=== PATIENT | female | born 1950 | race Caucasian/White ===

== ENCOUNTER 2016-09-28 11:45 | Inpatient (IN) | payer MEDICARE, OTHER ==
[~2016-09-28] VITALS: Ht 154.9 cm; Wt 71.5 kg
[~2016-09-28 11:45] MED LIST: ACAR50TA11 PO; AMIT25TA9 PO; ASPI81 PO; CHL25 PO; DSS100 PO; GABA-531 PO; INSLAN SQ; INSNOV SQ; OMEP20 PO; SITA50 PO; TEAROS OU
[2016-09-28] MEDS ORDERED: ROPI0.255 PO (12:08)
[2016-09-28] MEDS ORDERED: IOVERSOL 350 MG/ML 150 ML VIAL ONE (12:08)
[2016-09-28] MEDS ORDERED: SODIUM CHLORIDE 0.9% 100 ML ONE (12:08)
[2016-09-28] MEDS ORDERED: GLIP10 PO (12:13)
[2016-09-28] MEDS ORDERED: LISI-660 PO (12:13)
[2016-09-28] MEDS ORDERED: ATEN25 PO (12:13)
[2016-09-28] MEDS ORDERED: VITAD1000 PO (12:13)
[2016-09-28] MEDS ORDERED: DOCU-275 PO (12:14)
[2016-09-28] MEDS ORDERED: FERR-89 PO (12:16)
[2016-09-28] MEDS ORDERED: OMEP20 PO (12:16)
[2016-09-28] MEDS ORDERED: CHL25 PO (12:16)
[2016-09-28 12:29] LABS: BASOPHILS % (AUTO) 0.2 % (0.0-2.0); EOSINOPHILS % (AUTO) 1.6 % (1.0-6.0); LYMPHOCYTES # (AUTO) 0.5 K/uL (1.0-4.8); LYMPHOCYTES % (AUTO) 8.8 % (22.0-44.0); MEAN CORPUSCULAR HEMOGLOBIN 30.8 pg (26.0-34.0); MEAN CORPUSCULAR HGB CONC 33.3 G/dL (31.0-37.0); MEAN CORPUSCULAR VOLUME 93 fL (80-100); MONOCYTES # (AUTO) 0.5 K/uL (0.1-1.0); MONOCYTES % (AUTO) 8.6 % (2.0-9.0); NEUTROPHILS % (AUTO) 80.8 % (40.0-70.0); RED BLOOD CELL COUNT(AUTO) 3.24 MIL/uL (4.00-5.20); RED CELL DISTRIBUTION WIDTH 15.3 % (11.5-14.5); WHITE BLOOD COUNT (AUTO) 6.2 K/uL (4.5-11.0)
[2016-09-28] MEDS ORDERED: LORazepam 2 MG/ML VIAL IVP ONE (12:30)
[2016-09-28 12:35] LABS: INR 1.1 (0.9-1.1)
[2016-09-28 12:48] LABS: ANION GAP 10 mmol/L (8-16); BILIRUBIN,TOTAL 0.8 mg/dL (0.1-1.0); CALCIUM, TOTAL 8.7 mg/dL (8.8-10.5); CARBON DIOXIDE 22 mmol/L (22-29); CHLORIDE 108 mmol/L (98-107); GLOMERULAR FILTR. RATE CALC 26 mL/min (>60); POTASSIUM 5.4 mmol/L (3.5-5.1); SODIUM SERUM 140 mmol/L (136-145)
[2016-09-28 12:49] LABS: ALANINE AMINOTRANSFERASE 83 U/L (12-78); ALBUMIN 3.1 g/dL (3.4-5.0); ASPARTATE AMINOTRANSFERASE 99 U/L (15-37); CREATINE KINASE, TOTAL 151 U/L (26-192); TOTAL PROTEIN, SERUM 7.3 g/dL (6.4-8.2)
[2016-09-28 12:54] LABS: PLATELET COUNT (AUTO) 93 K/uL (150-450); UREA NITROGEN, BLOOD 40 mg/dL (7-18)
[2016-09-28 13:36] LABS: CREATINE KINASE MB 2.8 ng/mL (0-5)
[2016-09-28] MEDS ORDERED: HYDROCODONE/ACETAMINOPHEN 5-325 MG TABLET PO ONE (14:00)
[2016-09-28 15:23] LABS: APPEARANCE,URINE CLOUDY (CLEAR); GLUCOSE, URINE (UA) NEGATIVE (NEGATIVE); KETONES,URINE NEGATIVE (NEGATIVE); LEUKOCYTE ESTERASE ,URINE MODERATE (NEGATIVE); OCCULT BLOOD,URINE TRACE (NEGATIVE); PH,URINE 5.5 (5.0-8.0); PROTEIN,URINE NEGATIVE (NEGATIVE)
[2016-09-28 15:26] LABS: ADD UA MICROSCOPIC YES
[2016-09-28 15:50] LABS: SQUAMOUS EPITHELIAL CELL,UR Few /LPF (None Seen)
[2016-09-28 15:53] LABS: RBC,URINE 0-2 /HPF (0-2); WBC,URINE 26-50 /HPF (0-5)
[2016-09-28] MEDS ORDERED: CALCIUM GLUCONATE 100 MG/ML 10 ML IVP ONE (16:45)
[2016-09-28] MEDS ORDERED: SODIUM POLYSTYRENE SULFONATE 15 GM/60 ML SUSPENSION BOTTLE PO ONE (16:45)
[2016-09-28] MEDS ORDERED: LEVOFLOXACIN 500 MG/D5% WATER 100 ML IV ONE (17:45)
[2016-09-28] MEDS ORDERED: 0.9% SODIUM CHLORIDE 10 ML SYRINGE IVP PRN (17:45)
[2016-09-28] MEDS ORDERED: ONDANSETRON HCL 4 MG/2 ML VIAL IVP PRN (17:45)
[2016-09-28] MEDS ORDERED: ACETAMINOPHEN 325 MG TABLET PO PRN (17:45)
[2016-09-28] MEDS ORDERED: IBUPROFEN 400 MG TABLET PO ONE (18:00)
[2016-09-28 18:41] LABS: GLUCOSE,POINT OF CARE 115 MG/DL (70-110)
[2016-09-28] MEDS ORDERED: INSULIN DETEMIR 100 UNITS/ML SQ ONE (20:00)
[2016-09-28] MEDS ORDERED: DEXTROSE 50%-WATER 25 GM/50 ML SYRINGE IVP PRN (20:00)
[2016-09-28] MEDS ORDERED: MAGNESIUM HYDROXIDE SUSPENSION 30 ML UDCUP PO PRN (20:00)
[2016-09-28] MEDS: HYPROMELLOSE 0.5% 15 ML OPHTHALMIC SOLUTION OU SCH ×2 (21:00→22:48)
[2016-09-28 22:06] VITALS: BP 132/66
[2016-09-28] MEDS ORDERED: SODIUM CHLORIDE 0.9% 250 ML IV ONE (22:28)
[2016-09-28 22:42] LABS: GLUCOSE,POINT OF CARE 98 MG/DL (70-110)
[2016-09-28] MEDS: PANTOPRAZOLE SODIUM 40 MG/VIAL IVP SCH (22:45)
[2016-09-28] MEDS: OxyCODONE HCL/ACETAMINOPHEN 5-325 MG TABLET PO PRN (22:46)
[2016-09-28] MEDS: ASPIRIN 81 MG CHEWABLE TABLET PO SCH (22:47)
[2016-09-28] MEDS: CHOLECALCIFEROL (VIT D3) 1,000 UNITS TABLET PO SCH (22:47)
[2016-09-28] MEDS: ATENOLOL 25 MG TABLET PO SCH (22:47)
[2016-09-28] MEDS: DOCUSATE SODIUM 100 MG CAPSULE PO SCH (22:48)
[2016-09-28] MEDS: CefTRIAXone 1 GM/DEXTROSE 50 ML IV SCH (22:56)
[2016-09-28] MEDS: AMITRIPTYLINE HCL 25 MG TABLET PO SCH (22:56)
[2016-09-28 23:33] VITALS: BP 112/64
[2016-09-29 04:38] VITALS: BP 106/57
[2016-09-29] MEDS: INSULIN ASPART 100 UNITS/ML SQ SCH ×3 (05:51→17:30)
[2016-09-29 05:53] LABS: GLUCOSE,POINT OF CARE 88 MG/DL (70-110)
[2016-09-29 07:18] LABS: BASOPHILS # (AUTO) 0.02 K/uL (0.00-0.20); BASOPHILS % (AUTO) 0.5 % (0.0-2.0); EOSINOPHILS # (AUTO) 0.07 K/uL (0.00-0.70); EOSINOPHILS % (AUTO) 1.51 % (1.0-6.0); HEMATOCRIT 28.6 % (36-46); HEMOGLOBIN 9.7 g/dL (12.0-16.0); LYMPHOCYTES # (AUTO) 0.9 K/uL (1.0-4.8); LYMPHOCYTES % (AUTO) 18.5 % (22.0-44.0); MEAN CORPUSCULAR HEMOGLOBIN 31.5 pg (26.0-34.0); MEAN CORPUSCULAR HGB CONC 33.7 G/dL (31.0-37.0); MEAN CORPUSCULAR VOLUME 93 fL (80-100); MONOCYTES # (AUTO) 0.5 K/uL (0.1-1.0); MONOCYTES % (AUTO) 11.5 % (2.0-9.0); NEUTROPHILS # (AUTO) 3.1 K/uL (1.8-7.7); RED BLOOD CELL COUNT(AUTO) 3.07 MIL/uL (4.00-5.20); RED CELL DISTRIBUTION WIDTH 16.8 % (11.5-14.5); WHITE BLOOD COUNT (AUTO) 4.6 K/uL (4.5-11.0)
[2016-09-29 07:30] VITALS: BP 135/65
[2016-09-29 07:38] LABS: PLATELET COUNT (AUTO) 89 K/uL (150-450)
[2016-09-29 08:02] LABS: ALBUMIN 2.8 g/dL (3.4-5.0); BILIRUBIN,TOTAL 0.6 mg/dL (0.1-1.0); CALCIUM, TOTAL 8.2 mg/dL (8.8-10.5); CREATININE 2.08 mg/dL (0.60-1.30); TOTAL PROTEIN, SERUM 6.8 g/dL (6.4-8.2)
[2016-09-29] MEDS: CHOLECALCIFEROL (VIT D3) 1,000 UNITS TABLET PO SCH (08:07)
[2016-09-29] MEDS: OxyCODONE HCL/ACETAMINOPHEN 5-325 MG TABLET PO PRN ×2 (08:07→15:12)
[2016-09-29] MEDS: DOCUSATE SODIUM 100 MG CAPSULE PO SCH ×2 (08:07→21:26)
[2016-09-29] MEDS: PANTOPRAZOLE SODIUM 40 MG/VIAL IVP SCH (08:07)
[2016-09-29] MEDS: ATENOLOL 25 MG TABLET PO SCH (08:07)
[2016-09-29] MEDS: ASPIRIN 81 MG CHEWABLE TABLET PO SCH (08:07)
[2016-09-29] MEDS: FERROUS SULFATE 325 MG EC TABLET PO SCH ×3 (08:08→18:18)
[2016-09-29] MEDS: HYPROMELLOSE 0.5% 15 ML OPHTHALMIC SOLUTION OU SCH ×4 (08:13→21:26)
[2016-09-29 11:27] VITALS: BP 90/46
[2016-09-29] MEDS: INSULIN ASPART 100 UNITS/ML SQ PRN ×2 (12:23→21:30)
[2016-09-29 15:32] VITALS: BP 118/49
[2016-09-29] MEDS: ACETAMINOPHEN 325 MG TABLET PO PRN ×2 (15:56→21:31)
[2016-09-29 19:22] VITALS: BP 101/47
[2016-09-29] MEDS: CefTRIAXone 1 GM/DEXTROSE 50 ML IV SCH (19:33)
[2016-09-29] MEDS: AMITRIPTYLINE HCL 25 MG TABLET PO SCH (21:26)
[2016-09-29 23:19] VITALS: BP 110/48
[2016-09-30 04:49] VITALS: BP 117/47
[2016-09-30] MEDS: OxyCODONE HCL/ACETAMINOPHEN 5-325 MG TABLET PO PRN ×4 (04:53→20:01)
[2016-09-30 07:13] LABS: BASOPHILS % (AUTO) 0.5 % (0.0-2.0); EOSINOPHILS % (AUTO) 3.7 % (1.0-6.0); HEMATOCRIT 24.7 % (36-46); HEMOGLOBIN 8.2 g/dL (12.0-16.0); LYMPHOCYTES % (AUTO) 30.9 % (22.0-44.0); MEAN CORPUSCULAR VOLUME 94 fL (80-100); MONOCYTES # (AUTO) 0.3 K/uL (0.1-1.0); MONOCYTES % (AUTO) 10.6 % (2.0-9.0); NEUTROPHILS # (AUTO) 1.8 K/uL (1.8-7.7); NEUTROPHILS % (AUTO) 54.3 % (40.0-70.0); PLATELET COUNT (AUTO) 62 K/uL (150-450); RED BLOOD CELL COUNT(AUTO) 2.63 MIL/uL (4.00-5.20); RED CELL DISTRIBUTION WIDTH 16.4 % (11.5-14.5); WHITE BLOOD COUNT (AUTO) 3.3 K/uL (4.5-11.0)
[2016-09-30 07:21] LABS: GLUCOSE,POINT OF CARE 110 MG/DL (70-110)
[2016-09-30 07:27] LABS: GLUCOSE,POINT OF CARE 130 MG/DL (70-110)
[2016-09-30 07:27] LABS: GLUCOSE,POINT OF CARE 162 MG/DL (70-110)
[2016-09-30 07:33] VITALS: BP 100/48
[2016-09-30 07:36] LABS: CALCIUM, TOTAL 7.7 mg/dL (8.8-10.5); CREATININE 2.42 mg/dL (0.60-1.30); MAGNESIUM 1.9 mg/dL (1.80-2.40); PHOSPHORUS 4.4 mg/dL (2.5-4.9); POTASSIUM 4.1 mmol/L (3.5-5.1)
[2016-09-30] MEDS: FERROUS SULFATE 325 MG EC TABLET PO SCH ×3 (09:03→18:44)
[2016-09-30] MEDS: DOCUSATE SODIUM 100 MG CAPSULE PO SCH ×2 (09:04→20:00)
[2016-09-30] MEDS: CHOLECALCIFEROL (VIT D3) 1,000 UNITS TABLET PO SCH (09:04)
[2016-09-30] MEDS: ASPIRIN 81 MG CHEWABLE TABLET PO SCH (09:04)
[2016-09-30] MEDS: PANTOPRAZOLE SODIUM 40 MG/VIAL IVP SCH (09:13)
[2016-09-30] MEDS: INSULIN ASPART 100 UNITS/ML SQ SCH ×3 (09:19→18:41)
[2016-09-30] MEDS: HYPROMELLOSE 0.5% 15 ML OPHTHALMIC SOLUTION OU SCH ×4 (09:21→20:00)
[2016-09-30] MEDS: SODIUM CHLORIDE 0.45% 1,000 ML IV SCH (09:25)
[2016-09-30 10:16] LABS: HEMOGLOBIN A1C 7.1 % (4.5-6.2)
[2016-09-30 10:57] VITALS: BP 102/46
[2016-09-30 11:59] LABS: GLUCOSE COMMENT 1 Received Meds; GLUCOSE,POINT OF CARE 157 MG/DL (70-110)
[2016-09-30] MEDS: ATENOLOL 25 MG TABLET PO SCH (12:11)
[2016-09-30] MEDS: INSULIN ASPART 100 UNITS/ML SQ PRN (12:17)
[2016-09-30] MEDS: ALBUMIN HUMAN 25%-25GM/100ML 100 ML IV SCH ×3 (12:21→22:04)
[2016-09-30] MEDS: SOD FERRIC GLUC COMPLX/SUCROSE 125 MG in SODIUM CHLORIDE 0.9% 100 ML IV SCH (13:32)
[2016-09-30 15:12] VITALS: BP 103/51
[2016-09-30 17:27] LABS: GLUCOSE COMMENT 1 Received Meds; GLUCOSE,POINT OF CARE 147 MG/DL (70-110)
[2016-09-30 17:36] LABS: GLUCOSE,POINT OF CARE 89 MG/DL (70-110)
[2016-09-30 19:13] VITALS: BP 100/47
[2016-09-30] MEDS: CefTRIAXone 1 GM/DEXTROSE 50 ML IV SCH (19:58)
[2016-09-30] MEDS: AMITRIPTYLINE HCL 25 MG TABLET PO SCH (20:00)
[2016-10-01 01:05] VITALS: BP 109/52
[2016-10-01] MEDS: SODIUM CHLORIDE 0.45% 1,000 ML IV SCH ×2 (01:42→13:21)
[2016-10-01] MEDS: OxyCODONE HCL/ACETAMINOPHEN 5-325 MG TABLET PO PRN ×3 (01:47→15:02)
[2016-10-01] MEDS: ALBUMIN HUMAN 25%-25GM/100ML 100 ML IV SCH ×4 (03:34→21:58)
[2016-10-01 05:20] VITALS: BP 102/94
[2016-10-01 07:13] VITALS: BP 138/47
[2016-10-01 07:49] LABS: BASOPHILS % (AUTO) 0.3 % (0.0-2.0); EOSINOPHILS % (AUTO) 4.2 % (1.0-6.0); HEMATOCRIT 23.1 % (36-46); HEMOGLOBIN 7.6 g/dL (12.0-16.0); LYMPHOCYTES # (AUTO) 0.9 K/uL (1.0-4.8); LYMPHOCYTES % (AUTO) 41.7 % (22.0-44.0); MEAN CORPUSCULAR HEMOGLOBIN 30.9 pg (26.0-34.0); MEAN CORPUSCULAR HGB CONC 32.9 G/dL (31.0-37.0); MEAN CORPUSCULAR VOLUME 94 fL (80-100); MONOCYTES # (AUTO) 0.3 K/uL (0.1-1.0); MONOCYTES % (AUTO) 11.7 % (2.0-9.0); NEUTROPHILS # (AUTO) 0.9 K/uL (1.8-7.7); NEUTROPHILS % (AUTO) 42.1 % (40.0-70.0); PLATELET COUNT (AUTO) 63 K/uL (150-450); RED BLOOD CELL COUNT(AUTO) 2.46 MIL/uL (4.00-5.20); RED CELL DISTRIBUTION WIDTH 15.6 % (11.5-14.5); WHITE BLOOD COUNT (AUTO) 2.2 K/uL (4.5-11.0)
[2016-10-01 08:03] LABS: CALCIUM, TOTAL 7.6 mg/dL (8.8-10.5); CREATININE 2.09 mg/dL (0.60-1.30); PHOSPHORUS 3.5 mg/dL (2.5-4.9); POTASSIUM 4.3 mmol/L (3.5-5.1)
[2016-10-01] MEDS: PANTOPRAZOLE SODIUM 40 MG/VIAL IVP SCH (08:33)
[2016-10-01] MEDS: FERROUS SULFATE 325 MG EC TABLET PO SCH ×3 (08:33→18:22)
[2016-10-01] MEDS: ATENOLOL 25 MG TABLET PO SCH (08:34)
[2016-10-01] MEDS: DOCUSATE SODIUM 100 MG CAPSULE PO SCH ×2 (08:34→21:00)
[2016-10-01] MEDS: HYPROMELLOSE 0.5% 15 ML OPHTHALMIC SOLUTION OU SCH ×4 (08:34→20:33)
[2016-10-01] MEDS: CHOLECALCIFEROL (VIT D3) 1,000 UNITS TABLET PO SCH (08:34)
[2016-10-01] MEDS: ASPIRIN 81 MG CHEWABLE TABLET PO SCH (08:34)
[2016-10-01] MEDS: INSULIN ASPART 100 UNITS/ML SQ SCH ×3 (08:42→18:25)
[2016-10-01] MEDS: MORPHINE SULFATE 2 MG/ML SYRINGE IVP PRN ×2 (09:14→20:38)
[2016-10-01] MEDS: SOD FERRIC GLUC COMPLX/SUCROSE 125 MG in SODIUM CHLORIDE 0.9% 100 ML IV SCH (10:27)
[2016-10-01 11:48] LABS: GLUCOSE,POINT OF CARE 76 MG/DL (70-110)
[2016-10-01 11:55] VITALS: BP 108/41
[2016-10-01 15:44] VITALS: BP 101/40
[2016-10-01] MEDS: GuaiFENesin/D-METHORPHAN [SUGAR-FREE] 200-20MG/10 ML SYRUP UDCUP PO PRN (18:23)
[2016-10-01 20:01] VITALS: BP 104/59
[2016-10-01] MEDS: CefTRIAXone 1 GM/DEXTROSE 50 ML IV SCH (20:33)
[2016-10-01] MEDS: AMITRIPTYLINE HCL 25 MG TABLET PO SCH (20:37)
[2016-10-01] MEDS: INSULIN ASPART 100 UNITS/ML SQ PRN (20:45)
[2016-10-02] VITALS (8 sets, daily range): BP systolic 92–142; BP diastolic 53–74
[2016-10-02] MEDS: OxyCODONE HCL/ACETAMINOPHEN 5-325 MG TABLET PO PRN (01:23)
[2016-10-02] MEDS: GuaiFENesin/D-METHORPHAN [SUGAR-FREE] 200-20MG/10 ML SYRUP UDCUP PO PRN (03:29)
[2016-10-02] MEDS: ALBUMIN HUMAN 25%-25GM/100ML 100 ML IV SCH (03:29)
[2016-10-02] MEDS: ONDANSETRON HCL 4 MG/2 ML VIAL IVP PRN ×3 (03:29→17:31)
[2016-10-02] MEDS: SODIUM CHLORIDE 0.45% 1,000 ML IV SCH ×2 (03:30→09:29)
[2016-10-02] MEDS: INSULIN ASPART 100 UNITS/ML SQ SCH ×3 (06:10→17:39)
[2016-10-02] MEDS: ASPIRIN 81 MG CHEWABLE TABLET PO SCH (09:28)
[2016-10-02] MEDS: ATENOLOL 25 MG TABLET PO SCH (09:28)
[2016-10-02] MEDS: CHOLECALCIFEROL (VIT D3) 1,000 UNITS TABLET PO SCH (09:29)
[2016-10-02] MEDS: FERROUS SULFATE 325 MG EC TABLET PO SCH ×3 (09:29→17:36)
[2016-10-02] MEDS: PANTOPRAZOLE SODIUM 40 MG/VIAL IVP SCH (09:29)
[2016-10-02] MEDS: DOCUSATE SODIUM 100 MG CAPSULE PO SCH ×2 (09:29→21:17)
[2016-10-02] MEDS: HYPROMELLOSE 0.5% 15 ML OPHTHALMIC SOLUTION OU SCH ×4 (09:30→21:17)
[2016-10-02] MEDS: SOD FERRIC GLUC COMPLX/SUCROSE 125 MG in SODIUM CHLORIDE 0.9% 100 ML IV SCH (10:00)
[2016-10-02] MEDS ORDERED: ALBUTEROL SULFATE 2.5 MG/0.5 ML NEB SOLUTION NEB PRN (10:00)
[2016-10-02 10:38] LABS: CREATININE 1.9 mg/dL (0.60-1.30); MAGNESIUM 2.3 mg/dL (1.80-2.40); PHOSPHORUS 3.1 mg/dL (2.5-4.9); POTASSIUM 4.7 mmol/L (3.5-5.1)
[2016-10-02] MEDS ORDERED: 0.9% SODIUM CHLORIDE 5 ML NEB SOLUTION NEB ONE (15:58)
[2016-10-02] MEDS: MORPHINE SULFATE 2 MG/ML SYRINGE IVP PRN ×2 (17:31→23:33)
[2016-10-02] MEDS: CefTRIAXone 1 GM/DEXTROSE 50 ML IV SCH (21:16)
[2016-10-02] MEDS: AMITRIPTYLINE HCL 25 MG TABLET PO SCH (21:31)
[2016-10-02] MEDS: 0.9% SODIUM CHLORIDE 10 ML SYRINGE IVP PRN ×2 (21:31→23:33)
[2016-10-02] MEDS: INSULIN ASPART 100 UNITS/ML SQ PRN (21:43)
[2016-10-03 04:11] VITALS: BP 125/55
[2016-10-03] MEDS: INSULIN ASPART 100 UNITS/ML SQ SCH ×4 (06:19→17:47)
[2016-10-03] MEDS: GuaiFENesin/D-METHORPHAN [SUGAR-FREE] 200-20MG/10 ML SYRUP UDCUP PO PRN (06:28)
[2016-10-03 06:53] LABS: BASOPHILS % (AUTO) 0.2 % (0.0-2.0); EOSINOPHILS % (AUTO) 0.1 % (1.0-6.0); HEMATOCRIT 23.8 % (36-46); HEMOGLOBIN 7.8 g/dL (12.0-16.0); LYMPHOCYTES # (AUTO) 0.8 K/uL (1.0-4.8); LYMPHOCYTES % (AUTO) 11.9 % (22.0-44.0); MEAN CORPUSCULAR HEMOGLOBIN 30.9 pg (26.0-34.0); MEAN CORPUSCULAR VOLUME 94 fL (80-100); MONOCYTES # (AUTO) 0.6 K/uL (0.1-1.0); MONOCYTES % (AUTO) 8.6 % (2.0-9.0); NEUTROPHILS # (AUTO) 5.6 K/uL (1.8-7.7); NEUTROPHILS % (AUTO) 79.2 % (40.0-70.0); PLATELET COUNT (AUTO) 82 K/uL (150-450); RED BLOOD CELL COUNT(AUTO) 2.53 MIL/uL (4.00-5.20); RED CELL DISTRIBUTION WIDTH 15.8 % (11.5-14.5); WHITE BLOOD COUNT (AUTO) 7.1 K/uL (4.5-11.0)
[2016-10-03 07:15] LABS: CALCIUM, TOTAL 8.4 mg/dL (8.8-10.5); CREATININE 1.93 mg/dL (0.60-1.30); POTASSIUM 4.4 mmol/L (3.5-5.1)
[2016-10-03] MEDS: FERROUS SULFATE 325 MG EC TABLET PO SCH ×3 (08:42→18:18)
[2016-10-03] MEDS: PANTOPRAZOLE SODIUM 40 MG/VIAL IVP SCH (08:42)
[2016-10-03] MEDS: CHOLECALCIFEROL (VIT D3) 1,000 UNITS TABLET PO SCH (08:43)
[2016-10-03] MEDS: ATENOLOL 25 MG TABLET PO SCH (08:43)
[2016-10-03] MEDS: ASPIRIN 81 MG CHEWABLE TABLET PO SCH (08:43)
[2016-10-03] MEDS: DOCUSATE SODIUM 100 MG CAPSULE PO SCH ×2 (08:43→21:17)
[2016-10-03] MEDS: HYPROMELLOSE 0.5% 15 ML OPHTHALMIC SOLUTION OU SCH ×4 (08:43→21:17)
[2016-10-03] MEDS ORDERED: FUROSEMIDE 40 MG/4 ML VIAL ONE (10:56)
[2016-10-03] MEDS ORDERED: FUROSEMIDE 40 MG/4 ML VIAL IVP ONE (11:00)
[2016-10-03] MEDS: SOD FERRIC GLUC COMPLX/SUCROSE 125 MG in SODIUM CHLORIDE 0.9% 100 ML IV SCH (11:26)
[2016-10-03 11:30] VITALS: BP 124/72
[2016-10-03] MEDS: INSULIN ASPART 100 UNITS/ML SQ PRN ×3 (11:49→21:40)
[2016-10-03 15:25] VITALS: BP 143/54
[2016-10-03 19:49] VITALS: BP 140/58
[2016-10-03] MEDS: ALBUTEROL SULFATE 2.5 MG/0.5 ML NEB SOLUTION NEB SCH (20:00)
[2016-10-03] MEDS: AMITRIPTYLINE HCL 25 MG TABLET PO SCH (21:00)
[2016-10-03] MEDS: CefTRIAXone 1 GM/DEXTROSE 50 ML IV SCH (21:16)
[2016-10-03] MEDS: 0.9% SODIUM CHLORIDE 10 ML SYRINGE IVP PRN (21:27)
[2016-10-04] MEDS ORDERED: 0.9% SODIUM CHLORIDE 5 ML NEB SOLUTION NEB ONE ×4 (02:40→20:07)
[2016-10-04] MEDS: ALBUTEROL SULFATE 2.5 MG/0.5 ML NEB SOLUTION NEB SCH ×4 (02:43→20:07)
[2016-10-04 05:27] VITALS: BP 151/70
[2016-10-04] MEDS: INSULIN ASPART 100 UNITS/ML SQ PRN ×4 (06:31→22:37)
[2016-10-04] MEDS: INSULIN ASPART 100 UNITS/ML SQ SCH ×2 (06:34→18:25)
[2016-10-04 07:11] LABS: BASOPHILS % (AUTO) 0.1 % (0.0-2.0); EOSINOPHILS % (AUTO) 0.06 % (1.0-6.0); HEMATOCRIT 22.6 % (36-46); HEMOGLOBIN 7.7 g/dL (12.0-16.0); LYMPHOCYTES # (AUTO) 0.9 K/uL (1.0-4.8); LYMPHOCYTES % (AUTO) 11.7 % (22.0-44.0); MEAN CORPUSCULAR HEMOGLOBIN 31.7 pg (26.0-34.0); MEAN CORPUSCULAR HGB CONC 33.9 G/dL (31.0-37.0); MEAN CORPUSCULAR VOLUME 93 fL (80-100); MONOCYTES # (AUTO) 0.6 K/uL (0.1-1.0); MONOCYTES % (AUTO) 7.3 % (2.0-9.0); NEUTROPHILS # (AUTO) 6.4 K/uL (1.8-7.7); NEUTROPHILS % (AUTO) 80.9 % (40.0-70.0); PLATELET COUNT (AUTO) 75 K/uL (150-450); RED BLOOD CELL COUNT(AUTO) 2.42 MIL/uL (4.00-5.20); RED CELL DISTRIBUTION WIDTH 16.3 % (11.5-14.5); WHITE BLOOD COUNT (AUTO) 7.9 K/uL (4.5-11.0)
[2016-10-04 07:52] LABS: CALCIUM, TOTAL 8.8 mg/dL (8.8-10.5); CREATININE 1.72 mg/dL (0.60-1.30); POTASSIUM 3.6 mmol/L (3.5-5.1); THYROID STIMULATING HORMONE 0.18 uIU/mL (0.36-3.74)
[2016-10-04 07:56] VITALS: BP 135/58
[2016-10-04] MEDS: FERROUS SULFATE 325 MG EC TABLET PO SCH ×3 (08:22→18:24)
[2016-10-04] MEDS: PANTOPRAZOLE SODIUM 40 MG/VIAL IVP SCH (08:22)
[2016-10-04] MEDS: DOCUSATE SODIUM 100 MG CAPSULE PO SCH ×2 (08:23→20:41)
[2016-10-04] MEDS: CHOLECALCIFEROL (VIT D3) 1,000 UNITS TABLET PO SCH (08:23)
[2016-10-04] MEDS: ATENOLOL 25 MG TABLET PO SCH (08:23)
[2016-10-04] MEDS: HYPROMELLOSE 0.5% 15 ML OPHTHALMIC SOLUTION OU SCH ×4 (08:23→20:41)
[2016-10-04] MEDS: ASPIRIN 81 MG CHEWABLE TABLET PO SCH (08:23)
[2016-10-04] MEDS: SOD FERRIC GLUC COMPLX/SUCROSE 125 MG in SODIUM CHLORIDE 0.9% 100 ML IV SCH (10:00)
[2016-10-04] MEDS ORDERED: POTASSIUM CHLORIDE 10% 40 MEQ/30 ML LIQUID UDCUP ONE (10:11)
[2016-10-04] MEDS ORDERED: FUROSEMIDE 40 MG/4 ML VIAL ONE (10:12)
[2016-10-04] MEDS ORDERED: FUROSEMIDE 40 MG/4 ML VIAL IVP ONE (10:15)
[2016-10-04] MEDS ORDERED: POTASSIUM CHLORIDE 10% 40 MEQ/30 ML LIQUID UDCUP PO ONE (10:15)
[2016-10-04 11:09] VITALS: BP 109/68
[2016-10-04] MEDS ORDERED: FUROSEMIDE 20 MG/2 ML VIAL IVP ONE (15:45)
[2016-10-04 19:12] VITALS: BP 158/69
[2016-10-04] MEDS: CefTRIAXone 1 GM/DEXTROSE 50 ML IV SCH (20:39)
[2016-10-04] MEDS: AMITRIPTYLINE HCL 25 MG TABLET PO SCH (20:41)
[2016-10-04 23:54] VITALS: BP 153/68
[2016-10-05] VITALS (8 sets, daily range): BP systolic 129–150; BP diastolic 51–69
[2016-10-05] MEDS ORDERED: 0.9% SODIUM CHLORIDE 5 ML NEB SOLUTION NEB ONE ×4 (02:01→20:08)
[2016-10-05] MEDS: ALBUTEROL SULFATE 2.5 MG/0.5 ML NEB SOLUTION NEB SCH ×4 (02:06→20:23)
[2016-10-05 05:21] LABS: GLUCOSE COMMENT 1 Received Meds; GLUCOSE,POINT OF CARE 130 MG/DL (70-110)
[2016-10-05 05:27] LABS: GLUCOSE COMMENT 1 Received Meds; GLUCOSE,POINT OF CARE 248 MG/DL (70-110)
[2016-10-05 05:27] LABS: GLUCOSE COMMENT 1 Received Meds; GLUCOSE,POINT OF CARE 295 MG/DL (70-110)
[2016-10-05] MEDS ORDERED: SODIUM CHLORIDE 0.9% 250 ML IV ONE (05:51)
[2016-10-05] MEDS: INSULIN ASPART 100 UNITS/ML SQ PRN ×3 (06:08→20:43)
[2016-10-05 07:25] LABS: BASOPHILS % (AUTO) 0.2 % (0.0-2.0); EOSINOPHILS % (AUTO) 0 % (1.0-6.0); HEMATOCRIT 23.4 % (36-46); HEMOGLOBIN 7.7 g/dL (12.0-16.0); LYMPHOCYTES # (AUTO) 0.9 K/uL (1.0-4.8); LYMPHOCYTES % (AUTO) 13.8 % (22.0-44.0); MEAN CORPUSCULAR HEMOGLOBIN 30.9 pg (26.0-34.0); MEAN CORPUSCULAR HGB CONC 32.7 G/dL (31.0-37.0); MEAN CORPUSCULAR VOLUME 95 fL (80-100); MONOCYTES # (AUTO) 0.5 K/uL (0.1-1.0); MONOCYTES % (AUTO) 7.2 % (2.0-9.0); NEUTROPHILS # (AUTO) 5.1 K/uL (1.8-7.7); NEUTROPHILS % (AUTO) 78.8 % (40.0-70.0); PLATELET COUNT (AUTO) 81 K/uL (150-450); RED BLOOD CELL COUNT(AUTO) 2.48 MIL/uL (4.00-5.20); WHITE BLOOD COUNT (AUTO) 6.4 K/uL (4.5-11.0)
[2016-10-05 07:47] LABS: CALCIUM, TOTAL 8.9 mg/dL (8.8-10.5); CREATININE 1.65 mg/dL (0.60-1.30); POTASSIUM 3.2 mmol/L (3.5-5.1)
[2016-10-05 08:34] LABS: RBC MORPHOLOGY COMMENT NORMAL RBC MORPH
[2016-10-05] MEDS ORDERED: POTASSIUM CHLORIDE 20 MEQ ER TABLET PO ONE ×2 (09:00→12:45)
[2016-10-05] MEDS: INSULIN ASPART 100 UNITS/ML SQ SCH ×3 (09:33→18:39)
[2016-10-05] MEDS: SOD FERRIC GLUC COMPLX/SUCROSE 125 MG in SODIUM CHLORIDE 0.9% 100 ML IV SCH (09:35)
[2016-10-05] MEDS: ASPIRIN 81 MG CHEWABLE TABLET PO SCH (09:36)
[2016-10-05] MEDS: CHOLECALCIFEROL (VIT D3) 1,000 UNITS TABLET PO SCH (09:36)
[2016-10-05] MEDS: FERROUS SULFATE 325 MG EC TABLET PO SCH ×3 (09:36→18:39)
[2016-10-05] MEDS: DOCUSATE SODIUM 100 MG CAPSULE PO SCH ×2 (09:36→20:41)
[2016-10-05] MEDS: PANTOPRAZOLE SODIUM 40 MG/VIAL IVP SCH (09:36)
[2016-10-05] MEDS: HYPROMELLOSE 0.5% 15 ML OPHTHALMIC SOLUTION OU SCH ×4 (09:36→20:41)
[2016-10-05] MEDS: ATENOLOL 25 MG TABLET PO SCH (09:36)
[2016-10-05] MEDS: FUROSEMIDE 40 MG/4 ML VIAL IVP SCH ×2 (14:25→20:41)
[2016-10-05 15:23] LABS: GLUCOSE,POINT OF CARE 110 MG/DL (70-110)
[2016-10-05 15:26] LABS: GLUCOSE,POINT OF CARE 116 MG/DL (70-110)
[2016-10-05 15:27] LABS: GLUCOSE,POINT OF CARE 260 MG/DL (70-110)
[2016-10-05 15:27] LABS: GLUCOSE COMMENT 1 Received Meds; GLUCOSE,POINT OF CARE 141 MG/DL (70-110)
[2016-10-05 15:32] LABS: GLUCOSE COMMENT 1 Received Meds; GLUCOSE,POINT OF CARE 247 MG/DL (70-110)
[2016-10-05 15:32] LABS: GLUCOSE COMMENT 1 Received Meds; GLUCOSE,POINT OF CARE 241 MG/DL (70-110)
[2016-10-05] MEDS: CefTRIAXone 1 GM/DEXTROSE 50 ML IV SCH (19:56)
[2016-10-05] MEDS: AMITRIPTYLINE HCL 25 MG TABLET PO SCH (20:41)
[2016-10-05] MEDS: OxyCODONE HCL/ACETAMINOPHEN 5-325 MG TABLET PO PRN (21:38)
[2016-10-06] MEDS ORDERED: 0.9% SODIUM CHLORIDE 5 ML NEB SOLUTION NEB ONE ×4 (02:25→19:07)
[2016-10-06] MEDS: ALBUTEROL SULFATE 2.5 MG/0.5 ML NEB SOLUTION NEB SCH ×4 (02:30→19:14)
[2016-10-06 04:02] LABS: GLUCOSE,POINT OF CARE 111 MG/DL (70-110)
[2016-10-06 04:11] LABS: GLUCOSE COMMENT 1 Received Meds; GLUCOSE,POINT OF CARE 175 MG/DL (70-110)
[2016-10-06 04:13] VITALS: BP 113/54
[2016-10-06] MEDS: INSULIN ASPART 100 UNITS/ML SQ PRN ×2 (06:12→21:42)
[2016-10-06 07:06] LABS: ALBUMIN 3.5 g/dL (3.4-5.0); CALCIUM, TOTAL 8.6 mg/dL (8.8-10.5); CREATININE 1.67 mg/dL (0.60-1.30); MAGNESIUM 1.8 mg/dL (1.80-2.40); PHOSPHORUS 2.7 mg/dL (2.5-4.9); POTASSIUM 3.3 mmol/L (3.5-5.1); TOTAL PROTEIN, SERUM 6.9 g/dL (6.4-8.2)
[2016-10-06 07:21] LABS: ALBUMIN URINE (ELP24) 41.8 %; ALPHA-1 URINE (ELP24) 0.6 %; ALPHA-2 URINE(ELP24) 4.9 %; BETA URINE(ELP24) 22.7 %; GAMMA URINE(ELP24) 30.1 %; TOTAL PROTEIN URINE 18.4 mg/dL (Not Estab.)
[2016-10-06] MEDS ORDERED: POTASSIUM CHLORIDE 20 MEQ ER TABLET PO ONE (07:45)
[2016-10-06 07:52] VITALS: BP 140/58
[2016-10-06] MEDS: INSULIN ASPART 100 UNITS/ML SQ SCH ×3 (08:39→17:55)
[2016-10-06] MEDS: ATENOLOL 25 MG TABLET PO SCH (08:40)
[2016-10-06] MEDS: CHOLECALCIFEROL (VIT D3) 1,000 UNITS TABLET PO SCH (08:42)
[2016-10-06] MEDS: DOCUSATE SODIUM 100 MG CAPSULE PO SCH ×2 (08:42→20:14)
[2016-10-06] MEDS: PANTOPRAZOLE SODIUM 40 MG/VIAL IVP SCH (08:42)
[2016-10-06] MEDS: ASPIRIN 81 MG CHEWABLE TABLET PO SCH (08:42)
[2016-10-06] MEDS: FERROUS SULFATE 325 MG EC TABLET PO SCH ×3 (08:42→18:26)
[2016-10-06] MEDS: HYPROMELLOSE 0.5% 15 ML OPHTHALMIC SOLUTION OU SCH ×4 (08:42→20:14)
[2016-10-06] MEDS: SOD FERRIC GLUC COMPLX/SUCROSE 125 MG in SODIUM CHLORIDE 0.9% 100 ML IV SCH (10:50)
[2016-10-06 10:54] VITALS: BP 130/54
[2016-10-06 13:56] VITALS: BP 137/52
[2016-10-06 19:34] VITALS: BP 144/59
[2016-10-06] MEDS: CefTRIAXone 1 GM/DEXTROSE 50 ML IV SCH (20:13)
[2016-10-06] MEDS: AMITRIPTYLINE HCL 25 MG TABLET PO SCH (20:14)
[2016-10-06] MEDS: OxyCODONE HCL/ACETAMINOPHEN 5-325 MG TABLET PO PRN (20:14)
[2016-10-06] MEDS: FUROSEMIDE 40 MG/4 ML VIAL IVP SCH (20:14)
[2016-10-06 23:26] VITALS: BP 108/40
[2016-10-07] VITALS (9 sets, daily range): BP systolic 124–153; BP diastolic 50–67
[2016-10-07] MEDS ORDERED: 0.9% SODIUM CHLORIDE 5 ML NEB SOLUTION NEB ONE ×4 (02:17→19:35)
[2016-10-07] MEDS: ALBUTEROL SULFATE 2.5 MG/0.5 ML NEB SOLUTION NEB SCH ×5 (02:18→19:49)
[2016-10-07 05:58] LABS: BASOPHILS # (AUTO) 0.03 K/uL (0.00-0.20); BASOPHILS % (AUTO) 0.4 % (0.0-2.0); EOSINOPHILS # (AUTO) 0.18 K/uL (0.00-0.70); EOSINOPHILS % (AUTO) 2.71 % (1.0-6.0); HEMATOCRIT 28.6 % (36-46); HEMOGLOBIN 9.9 g/dL (12.0-16.0); LYMPHOCYTES # (AUTO) 1.8 K/uL (1.0-4.8); LYMPHOCYTES % (AUTO) 27.6 % (22.0-44.0); MEAN CORPUSCULAR HEMOGLOBIN 31.8 pg (26.0-34.0); MEAN CORPUSCULAR HGB CONC 34.5 G/dL (31.0-37.0); MEAN CORPUSCULAR VOLUME 92 fL (80-100); MONOCYTES # (AUTO) 0.7 K/uL (0.1-1.0); MONOCYTES % (AUTO) 10.1 % (2.0-9.0); NEUTROPHILS # (AUTO) 3.9 K/uL (1.8-7.7); NEUTROPHILS % (AUTO) 59.1 % (40.0-70.0); PLATELET COUNT (AUTO) 92 K/uL (150-450); WHITE BLOOD COUNT (AUTO) 6.6 K/uL (4.5-11.0)
[2016-10-07 06:22] LABS: GLUCOSE,POINT OF CARE 178 MG/DL (70-110)
[2016-10-07 06:43] LABS: ALBUMIN 3.6 g/dL (3.4-5.0); BILIRUBIN,TOTAL 0.9 mg/dL (0.1-1.0); CALCIUM, TOTAL 8.4 mg/dL (8.8-10.5); CREATININE 1.61 mg/dL (0.60-1.30); POTASSIUM 3.5 mmol/L (3.5-5.1); TOTAL PROTEIN, SERUM 6.5 g/dL (6.4-8.2)
[2016-10-07] MEDS: ATENOLOL 25 MG TABLET PO SCH (08:03)
[2016-10-07] MEDS: FUROSEMIDE 40 MG TABLET PO SCH (08:03)
[2016-10-07] MEDS: ASPIRIN 81 MG CHEWABLE TABLET PO SCH (08:03)
[2016-10-07] MEDS: CHOLECALCIFEROL (VIT D3) 1,000 UNITS TABLET PO SCH (08:03)
[2016-10-07] MEDS: DOCUSATE SODIUM 100 MG CAPSULE PO SCH ×2 (08:03→21:01)
[2016-10-07] MEDS: PANTOPRAZOLE SODIUM 40 MG/VIAL IVP SCH (08:04)
[2016-10-07] MEDS: HYPROMELLOSE 0.5% 15 ML OPHTHALMIC SOLUTION OU SCH ×4 (08:04→21:01)
[2016-10-07] MEDS: FERROUS SULFATE 325 MG EC TABLET PO SCH ×3 (08:20→18:21)
[2016-10-07] MEDS ORDERED: POTASSIUM CHLORIDE 10 MEQ ER TABLET PO ONE (09:00)
[2016-10-07] MEDS: INSULIN ASPART 100 UNITS/ML SQ SCH ×3 (09:37→17:20)
[2016-10-07] MEDS: SOD FERRIC GLUC COMPLX/SUCROSE 125 MG in SODIUM CHLORIDE 0.9% 100 ML IV SCH (09:38)
[2016-10-07] MEDS: OxyCODONE HCL/ACETAMINOPHEN 5-325 MG TABLET PO PRN ×2 (09:45→21:23)
[2016-10-07] MEDS ORDERED: SESTAMIBI TC99M/UD ISOTOPE 1 EA INJ INJ ONE ×2 (10:05→14:00)
[2016-10-07] MEDS ORDERED: REGADENOSON 0.4 MG/5 ML PF SYRINGE IVP ONE (12:00)
[2016-10-07 19:22] LABS: GLUCOSE COMMENT 1 Received Meds; GLUCOSE,POINT OF CARE 179 MG/DL (70-110)
[2016-10-07 19:22] LABS: GLUCOSE COMMENT 1 Received Meds; GLUCOSE,POINT OF CARE 237 MG/DL (70-110)
[2016-10-07 19:22] LABS: GLUCOSE COMMENT 1 Received Meds; GLUCOSE,POINT OF CARE 236 MG/DL (70-110)
[2016-10-07] MEDS: CefTRIAXone 1 GM/DEXTROSE 50 ML IV SCH (20:52)
[2016-10-07] MEDS: OXYGEN THERAPY IH SCH (21:01)
[2016-10-07] MEDS: AMITRIPTYLINE HCL 25 MG TABLET PO SCH (21:01)
[2016-10-07] MEDS: INSULIN ASPART 100 UNITS/ML SQ PRN (21:21)
[2016-10-08] MEDS: ALBUTEROL SULFATE 2.5 MG/0.5 ML NEB SOLUTION NEB SCH ×3 (02:00→14:50)
[2016-10-08 03:41] LABS: GLUCOSE,POINT OF CARE 139 MG/DL (70-110)
[2016-10-08 05:13] VITALS: BP 137/56
[2016-10-08] MEDS: INSULIN ASPART 100 UNITS/ML SQ PRN (06:37)
[2016-10-08 06:52] LABS: GLUCOSE COMMENT 1 Received Meds; GLUCOSE,POINT OF CARE 165 MG/DL (70-110)
[2016-10-08 07:07] LABS: CALCIUM, TOTAL 7.8 mg/dL (8.8-10.5); CREATININE 1.69 mg/dL (0.60-1.30); MAGNESIUM 1.9 mg/dL (1.80-2.40); PHOSPHORUS 3.8 mg/dL (2.5-4.9); POTASSIUM 3.8 mmol/L (3.5-5.1)
[2016-10-08] MEDS ORDERED: 0.9% SODIUM CHLORIDE 5 ML NEB SOLUTION NEB ONE ×3 (07:15→19:21)
[2016-10-08 08:00] VITALS: BP 149/63
[2016-10-08] MEDS: FUROSEMIDE 40 MG TABLET PO SCH (09:11)
[2016-10-08] MEDS: FERROUS SULFATE 325 MG EC TABLET PO SCH ×3 (09:11→17:51)
[2016-10-08] MEDS: ATENOLOL 25 MG TABLET PO SCH (09:11)
[2016-10-08] MEDS: CHOLECALCIFEROL (VIT D3) 1,000 UNITS TABLET PO SCH (09:12)
[2016-10-08] MEDS: HYPROMELLOSE 0.5% 15 ML OPHTHALMIC SOLUTION OU SCH ×3 (09:12→17:51)
[2016-10-08] MEDS: DOCUSATE SODIUM 100 MG CAPSULE PO SCH (09:12)
[2016-10-08] MEDS: ASPIRIN 81 MG CHEWABLE TABLET PO SCH (09:12)
[2016-10-08] MEDS: PANTOPRAZOLE SODIUM 40 MG/VIAL IVP SCH (09:12)
[2016-10-08] MEDS: OXYGEN THERAPY IH SCH (09:13)
[2016-10-08] MEDS: INSULIN ASPART 100 UNITS/ML SQ SCH ×3 (09:21→17:52)
[2016-10-08 11:22] VITALS: BP 124/62
[2016-10-08 15:36] VITALS: BP 146/64
[2016-10-08] MEDS ORDERED: FURO40I IM (18:12)
[2016-10-08 20:03] LABS: GLUCOSE COMMENT 1 Received Meds; GLUCOSE,POINT OF CARE 164 MG/DL (70-110)
[2016-10-12 14:06] LABS: GLUCOSE,POINT OF CARE 251 MG/DL (70-110)
[2016-10-12 14:07] LABS: GLUCOSE,POINT OF CARE 172 MG/DL (70-110)
[2016-10-12 14:07] LABS: GLUCOSE COMMENT 1 Received Meds; GLUCOSE,POINT OF CARE 159 MG/DL (70-110)
[2016-10-12 14:07] LABS: GLUCOSE,POINT OF CARE 198 MG/DL (70-110)
[2016-10-12 14:12] LABS: GLUCOSE,POINT OF CARE 259 MG/DL (70-110)
[2016-10-12 14:12] LABS: GLUCOSE COMMENT 1 Received Meds; GLUCOSE,POINT OF CARE 155 MG/DL (70-110)
[2016-10-12 14:12] LABS: GLUCOSE COMMENT 1 Received Meds; GLUCOSE,POINT OF CARE 202 MG/DL (70-110)
[2016-10-12 14:52] LABS: GLUCOSE COMMENT 1 Received Meds; GLUCOSE,POINT OF CARE 209 MG/DL (70-110)
== END 2016-10-08 18:25 | disposition home or self-care (01) | DRG 682 ==
LOC: EMS 11:46 → AHU 20:25 → 5N 20:26
PROVIDERS: ADMIT Internal Medicine; ATTEND Internal Medicine
PROC: 30233N1 Transfusion of Nonautologous Red Blood Cells into Peripheral Vein, Percutaneous Approach (ICD-10-PCS; principal; 2016-10-05)
DX: N17.9 Acute kidney failure, unspecified (principal); G93.41 Metabolic encephalopathy; E43 Unspecified severe protein-calorie malnutrition; I21.4 Non-ST elevation (NSTEMI) myocardial infarction; J96.90 Respiratory failure, unspecified, unspecified whether with hypoxia or hypercapnia; N39.0 Urinary tract infection, site not specified; R65.10 Systemic inflammatory response syndrome (SIRS) of non-infectious origin without acute organ dysfunction; J81.1 Chronic pulmonary edema; I13.0 Hypertensive heart and chronic kidney disease with heart failure and stage 1 through stage 4 chronic kidney disease, or unspecified chronic kidney disease; D61.818 Other pancytopenia; E87.5 Hyperkalemia; I51.7 Cardiomegaly; D64.9 Anemia, unspecified; E11.22 Type 2 diabetes mellitus with diabetic chronic kidney disease; K21.9 Gastro-esophageal reflux disease without esophagitis; I10 Essential (primary) hypertension; E11.21 Type 2 diabetes mellitus with diabetic nephropathy; D50.9 Iron deficiency anemia, unspecified; E78.5 Hyperlipidemia, unspecified; G20 Parkinson's disease; E86.9 Volume depletion, unspecified; E87.6 Hypokalemia; B96.20 Unspecified Escherichia coli [E. coli] as the cause of diseases classified elsewhere; I50.9 Heart failure, unspecified; N18.9 Chronic kidney disease, unspecified; E78.00 Pure hypercholesterolemia, unspecified; M19.90 Unspecified osteoarthritis, unspecified site; E87.70 Fluid overload, unspecified; Z79.4 Long term (current) use of insulin; Z79.82 Long term (current) use of aspirin; Z68.24 Body mass index [BMI] 24.0-24.9, adult
CPT/HCPCS: 51702; 70496; 76770; 78452; 81050; 82271; 82570; 82575; 82607; 82746; 82962; 83036; 83540; 83550; 83735; 84100; 84156; 84166; 84300; 84443; 84540; 86850; 86900; 86901; 86920; 87040; 87086; 93005; 93017; 93306; 94640; 96365; 96375; 97110; 97112; 97116; 97161; 97530; 99285; A9500; C9113; J0610; J0696; J1815; J1940; J1956; J2060; J2270; J2405; J2785; J2916; J7050; P9016; P9046

== ENCOUNTER 2016-10-16 17:19 | Inpatient (IN) | payer MEDICARE, OTHER ==
[~2016-10-16] VITALS: Ht 154.9 cm; Wt 70.0 kg
[~2016-10-16 17:19] MED LIST changes: +ATEN25 PO; +DOCU-275 PO; -DSS100 PO; +FERR-89 PO; +FURO40I IM; -GABA-531 PO; +GLIP10 PO; +LISI-660 PO; +ROPI0.255 PO; +VITAD1000 PO
[2016-10-16 17:32] LABS: GLUCOSE,POINT OF CARE 217 MG/DL (70-110)
[2016-10-16 19:11] LABS: BASOPHILS % (AUTO) 0.4 % (0.0-2.0); EOSINOPHILS % (AUTO) 1.7 % (1.0-6.0); HEMATOCRIT 33.8 % (36-46); HEMOGLOBIN 11.1 g/dL (12.0-16.0); LYMPHOCYTES # (AUTO) 1.5 K/uL (1.0-4.8); LYMPHOCYTES % (AUTO) 23.4 % (22.0-44.0); MEAN CORPUSCULAR HEMOGLOBIN 31.2 pg (26.0-34.0); MEAN CORPUSCULAR HGB CONC 32.9 G/dL (31.0-37.0); MEAN CORPUSCULAR VOLUME 95 fL (80-100); MONOCYTES # (AUTO) 0.6 K/uL (0.1-1.0); MONOCYTES % (AUTO) 9.6 % (2.0-9.0); NEUTROPHILS # (AUTO) 4.2 K/uL (1.8-7.7); NEUTROPHILS % (AUTO) 64.9 % (40.0-70.0); PLATELET COUNT (AUTO) 103 K/uL (150-450); RED BLOOD CELL COUNT(AUTO) 3.56 MIL/uL (4.00-5.20); RED CELL DISTRIBUTION WIDTH 18.3 % (11.5-14.5); WHITE BLOOD COUNT (AUTO) 6.5 K/uL (4.5-11.0)
[2016-10-16 19:20] LABS: CALCIUM, TOTAL 9.5 mg/dL (8.8-10.5); CREATININE 2.42 mg/dL (0.60-1.30); POTASSIUM 4.5 mmol/L (3.5-5.1)
[2016-10-16 19:25] LABS: ALBUMIN 3.6 g/dL (3.4-5.0); BILIRUBIN,TOTAL 0.6 mg/dL (0.1-1.0); TOTAL PROTEIN, SERUM 7.6 g/dL (6.4-8.2)
[2016-10-16] MEDS ORDERED: SODIUM CHLORIDE 0.9% 1,000 ML IV ONE (19:45)
[2016-10-16] MEDS ORDERED: ONDANSETRON HCL 4 MG/2 ML VIAL IVP PRN (19:45)
[2016-10-16] MEDS ORDERED: 0.9% SODIUM CHLORIDE 10 ML SYRINGE IVP PRN (19:45)
[2016-10-16] MEDS ORDERED: ACETAMINOPHEN 325 MG TABLET PO PRN (19:45)
[2016-10-16 19:48] LABS: LACTIC ACID 2.2 mmol/L (0.4-2.0)
[2016-10-16 20:29] LABS: RBC MORPHOLOGY COMMENT ABNORMAL RBC MORPH
[2016-10-16] MEDS ORDERED: POTASSIUM CHL 20 MEQ/0.45% NS 1,000 ML IV ONE (20:30)
[2016-10-16 21:06] LABS: REFLEX LACTIC ACID? YES YES
[2016-10-16 22:18] VITALS: BP 95/70
[2016-10-16] MEDS: SODIUM CHLORIDE 0.45% 1,000 ML IV SCH (23:40)
[2016-10-17] VITALS: BP 115/65
[2016-10-17 06:09] VITALS: BP 121/54
[2016-10-17] MEDS ORDERED: GlipiZIDE 10 MG TABLET PO SCH (06:30)
[2016-10-17 06:43] LABS: BASOPHILS # (AUTO) 0.03 K/uL (0.00-0.20); BASOPHILS % (AUTO) 0.6 % (0.0-2.0); EOSINOPHILS # (AUTO) 0.11 K/uL (0.00-0.70); EOSINOPHILS % (AUTO) 2.01 % (1.0-6.0); HEMATOCRIT 29.5 % (36-46); HEMOGLOBIN 10.1 g/dL (12.0-16.0); LYMPHOCYTES # (AUTO) 1.6 K/uL (1.0-4.8); LYMPHOCYTES % (AUTO) 30.5 % (22.0-44.0); MEAN CORPUSCULAR HGB CONC 34.1 G/dL (31.0-37.0); MEAN CORPUSCULAR VOLUME 94 fL (80-100); MONOCYTES # (AUTO) 0.6 K/uL (0.1-1.0); MONOCYTES % (AUTO) 11.4 % (2.0-9.0); NEUTROPHILS % (AUTO) 55.5 % (40.0-70.0); PLATELET COUNT (AUTO) 89 K/uL (150-450); RED BLOOD CELL COUNT(AUTO) 3.14 MIL/uL (4.00-5.20); RED CELL DISTRIBUTION WIDTH 18.8 % (11.5-14.5); WHITE BLOOD COUNT (AUTO) 5.4 K/uL (4.5-11.0)
[2016-10-17 06:52] LABS: BILIRUBIN,TOTAL 0.5 mg/dL (0.1-1.0); CALCIUM, TOTAL 8.6 mg/dL (8.8-10.5); CHOL/HDL RATIO 3.2 (3.9-5.7); CREATININE 1.81 mg/dL (0.60-1.30); MAGNESIUM 1.9 mg/dL (1.80-2.40); POTASSIUM 4.2 mmol/L (3.5-5.1); TOTAL PROTEIN, SERUM 6.6 g/dL (6.4-8.2)
[2016-10-17] MEDS: INSULIN ASPART 100 UNITS/ML SQ SCH ×3 (07:30→17:20)
[2016-10-17] MEDS: ACARBOSE 50 MG TABLET PO SCH ×2 (08:00→11:29)
[2016-10-17] MEDS: FERROUS SULFATE 325 MG EC TABLET PO SCH ×3 (08:00→17:13)
[2016-10-17 08:03] VITALS: BP 109/56
[2016-10-17] MEDS: ATENOLOL 25 MG TABLET PO SCH (08:37)
[2016-10-17] MEDS: SitaGLIPtin PHOSPHATE 50 MG TABLET PO SCH (08:37)
[2016-10-17] MEDS: CHLORTHALIDONE 25 MG TABLET PO SCH (08:37)
[2016-10-17] MEDS: LISINOPRIL 5 MG TABLET PO SCH (08:38)
[2016-10-17] MEDS: HYPROMELLOSE 0.5% 15 ML OPHTHALMIC SOLUTION OU SCH ×2 (08:42→11:54)
[2016-10-17] MEDS: SODIUM CHLORIDE 0.45% 1,000 ML IV SCH ×2 (08:42→17:14)
[2016-10-17] MEDS: ASPIRIN 81 MG CHEWABLE TABLET PO SCH (08:45)
[2016-10-17] MEDS: DOCUSATE SODIUM 100 MG CAPSULE PO SCH ×2 (08:45→20:33)
[2016-10-17] MEDS: OMEPRAZOLE 20 MG CAPSULE PO SCH (08:45)
[2016-10-17] MEDS: CHOLECALCIFEROL (VIT D3) 2,000 UNITS TABLET PO SCH (08:46)
[2016-10-17] MEDS ORDERED: FUROSEMIDE 40 MG/4 ML VIAL IM SCH (09:00)
[2016-10-17] MEDS ORDERED: INSULIN DETEMIR 100 UNITS/ML SQ SCH (09:00)
[2016-10-17 11:24] VITALS: BP 121/56
[2016-10-17] MEDS ORDERED: HYDR-309 PO (11:24)
[2016-10-17] MEDS ORDERED: INSLAN SQ (11:24)
[2016-10-17] MEDS ORDERED: GABA-531 PO (11:24)
[2016-10-17] MEDS ORDERED: FURO40 PO (11:24)
[2016-10-17] MEDS ORDERED: CYAN50008 PO (11:27)
[2016-10-17] MEDS ORDERED: DEXTROSE 50%-WATER 25 GM/50 ML SYRINGE IVP PRN (12:15)
[2016-10-17 13:08] LABS: APPEARANCE,URINE CLEAR (CLEAR); GLUCOSE, URINE (UA) NEGATIVE (NEGATIVE); KETONES,URINE NEGATIVE (NEGATIVE); LEUKOCYTE ESTERASE ,URINE NEGATIVE (NEGATIVE); OCCULT BLOOD,URINE NEGATIVE (NEGATIVE); PH,URINE 7.5 (5.0-8.0); PROTEIN,URINE NEGATIVE (NEGATIVE)
[2016-10-17 13:10] LABS: ADD UA MICROSCOPIC NO
[2016-10-17 15:35] VITALS: BP 110/68
[2016-10-17] MEDS ORDERED: HYPROMELLOSE 0.5% 15 ML OPHTHALMIC SOLUTION OU PRN (16:00)
[2016-10-17 18:13] LABS: GLUCOSE,POINT OF CARE 89 MG/DL (70-110)
[2016-10-17 18:13] LABS: GLUCOSE,POINT OF CARE 73 MG/DL (70-110)
[2016-10-17 18:13] LABS: GLUCOSE COMMENT 1 Received Meds; GLUCOSE,POINT OF CARE 228 MG/DL (70-110)
[2016-10-17 19:06] VITALS: BP 129/50
[2016-10-17] MEDS: GABAPENTIN 300 MG CAPSULE PO SCH (20:34)
[2016-10-17] MEDS: ROPINIRole HCL 0.25 MG TABLET PO SCH (20:34)
[2016-10-17] MEDS: INSULIN DETEMIR 100 UNITS/ML SQ SCH (20:42)
[2016-10-17] MEDS: INSULIN ASPART 100 UNITS/ML SQ PRN (20:44)
[2016-10-17] MEDS ORDERED: AMITRIPTYLINE HCL 25 MG TABLET PO SCH (21:00)
[2016-10-18] VITALS (7 sets, daily range): BP systolic 123–136; BP diastolic 55–65
[2016-10-18] MEDS: SODIUM CHLORIDE 0.45% 1,000 ML IV SCH (05:21)
[2016-10-18 07:29] LABS: BASOPHILS % (AUTO) 0.8 % (0.0-2.0); EOSINOPHILS % (AUTO) 3.8 % (1.0-6.0); HEMATOCRIT 32.4 % (36-46); HEMOGLOBIN 10.6 g/dL (12.0-16.0); LYMPHOCYTES # (AUTO) 1.5 K/uL (1.0-4.8); MEAN CORPUSCULAR HEMOGLOBIN 31.4 pg (26.0-34.0); MEAN CORPUSCULAR HGB CONC 32.9 G/dL (31.0-37.0); MEAN CORPUSCULAR VOLUME 96 fL (80-100); MONOCYTES # (AUTO) 0.4 K/uL (0.1-1.0); MONOCYTES % (AUTO) 9.8 % (2.0-9.0); NEUTROPHILS % (AUTO) 48.6 % (40.0-70.0); PLATELET COUNT (AUTO) 94 K/uL (150-450); RED BLOOD CELL COUNT(AUTO) 3.39 MIL/uL (4.00-5.20); RED CELL DISTRIBUTION WIDTH 18.4 % (11.5-14.5); WHITE BLOOD COUNT (AUTO) 4.2 K/uL (4.5-11.0)
[2016-10-18 07:34] LABS: RBC MORPHOLOGY COMMENT ABNORMAL RBC MORPH
[2016-10-18 07:44] LABS: ALBUMIN 3.2 g/dL (3.4-5.0); BILIRUBIN,TOTAL 0.7 mg/dL (0.1-1.0); CREATININE 1.39 mg/dL (0.60-1.30); POTASSIUM 4.3 mmol/L (3.5-5.1); TOTAL PROTEIN, SERUM 7.4 g/dL (6.4-8.2)
[2016-10-18] MEDS: CHLORTHALIDONE 25 MG TABLET PO SCH (08:05)
[2016-10-18] MEDS: OMEPRAZOLE 20 MG CAPSULE PO SCH (08:05)
[2016-10-18] MEDS: CHOLECALCIFEROL (VIT D3) 2,000 UNITS TABLET PO SCH (08:05)
[2016-10-18] MEDS: DOCUSATE SODIUM 100 MG CAPSULE PO SCH ×2 (08:05→20:32)
[2016-10-18] MEDS: ATENOLOL 25 MG TABLET PO SCH (08:05)
[2016-10-18] MEDS: SitaGLIPtin PHOSPHATE 50 MG TABLET PO SCH (08:05)
[2016-10-18] MEDS: ASPIRIN 81 MG CHEWABLE TABLET PO SCH (08:05)
[2016-10-18] MEDS: FERROUS SULFATE 325 MG EC TABLET PO SCH ×3 (08:05→17:52)
[2016-10-18] MEDS: LISINOPRIL 5 MG TABLET PO SCH (08:06)
[2016-10-18] MEDS: GABAPENTIN 300 MG CAPSULE PO SCH ×3 (08:06→20:32)
[2016-10-18] MEDS: INSULIN ASPART 100 UNITS/ML SQ SCH ×3 (08:06→17:56)
[2016-10-18] MEDS: INSULIN DETEMIR 100 UNITS/ML SQ SCH ×2 (08:36→20:38)
[2016-10-18 09:42] LABS: GLUCOSE,POINT OF CARE 77 MG/DL (70-110)
[2016-10-18 09:42] LABS: GLUCOSE COMMENT 1 Received Meds; GLUCOSE,POINT OF CARE 167 MG/DL (70-110)
[2016-10-18] MEDS ORDERED: HYDR-309 PO (12:03)
[2016-10-18] MEDS ORDERED: DEXTROSE 5%-WATER 1,000 ML IV SCH (15:00)
[2016-10-18 18:07] LABS: GLUCOSE,POINT OF CARE 125 MG/DL (70-110)
[2016-10-18 18:07] LABS: GLUCOSE COMMENT 1 Received Meds; GLUCOSE,POINT OF CARE 144 MG/DL (70-110)
[2016-10-18] MEDS: ROPINIRole HCL 0.25 MG TABLET PO SCH (20:32)
[2016-10-18] MEDS: INSULIN ASPART 100 UNITS/ML SQ PRN (20:40)
[2016-10-18] MEDS ORDERED: DiphenhydrAMINE HCL 25 MG CAPSULE PO PRN (22:15)
[2016-10-18] MEDS: HYDROCODONE/ACETAMINOPHEN 5-325 MG TABLET PO PRN (22:24)
[2016-10-19] VITALS (13 sets, daily range): BP systolic 110–156; BP diastolic 51–86
[2016-10-19 06:30] LABS: BASOPHILS % (AUTO) 0.7 % (0.0-2.0); EOSINOPHILS % (AUTO) 3.4 % (1.0-6.0); HEMATOCRIT 33.5 % (36-46); LYMPHOCYTES # (AUTO) 2.2 K/uL (1.0-4.8); LYMPHOCYTES % (AUTO) 35.9 % (22.0-44.0); MEAN CORPUSCULAR HEMOGLOBIN 31.4 pg (26.0-34.0); MEAN CORPUSCULAR HGB CONC 32.8 G/dL (31.0-37.0); MEAN CORPUSCULAR VOLUME 96 fL (80-100); MONOCYTES # (AUTO) 0.6 K/uL (0.1-1.0); MONOCYTES % (AUTO) 10.3 % (2.0-9.0); NEUTROPHILS # (AUTO) 3.1 K/uL (1.8-7.7); NEUTROPHILS % (AUTO) 49.7 % (40.0-70.0); PLATELET COUNT (AUTO) 98 K/uL (150-450); RED BLOOD CELL COUNT(AUTO) 3.49 MIL/uL (4.00-5.20); RED CELL DISTRIBUTION WIDTH 18.3 % (11.5-14.5); WHITE BLOOD COUNT (AUTO) 6.2 K/uL (4.5-11.0)
[2016-10-19 07:04] LABS: ALBUMIN 3.2 g/dL (3.4-5.0); BILIRUBIN,TOTAL 0.7 mg/dL (0.1-1.0); CREATININE 1.34 mg/dL (0.60-1.30); MAGNESIUM 1.5 mg/dL (1.80-2.40); POTASSIUM 4.3 mmol/L (3.5-5.1); TOTAL PROTEIN, SERUM 7.1 g/dL (6.4-8.2)
[2016-10-19] MEDS ORDERED: LIDOCAINE HCL/PF 1% 30 ML VIAL ONE ×2 (07:15→07:28)
[2016-10-19] MEDS ORDERED: IOHEXOL 300 MG/ML 150 ML VIAL ONE ×2 (07:15→07:28)
[2016-10-19] MEDS ORDERED: HEPARIN SODIUM 1000 UNITS/NS 1,000 ML ONE (07:15)
[2016-10-19] MEDS ORDERED: SODIUM BICARBONATE 50 MEQ/50 ML VIAL ONE ×2 (07:15→07:28)
[2016-10-19] MEDS ORDERED: FentaNYL CITRATE-PF 100 MCG/2 ML VIAL ONE (07:26)
[2016-10-19] MEDS ORDERED: VERAPAMIL HCL 2.5 MG/ML 2 ML VIAL ONE (07:27)
[2016-10-19] MEDS ORDERED: MIDAZOLAM HCL 2 MG/2 ML VIAL ONE (07:27)
[2016-10-19] MEDS ORDERED: NITROGLYCERIN 50 MG/D5% WATER 250 ML ONE (07:27)
[2016-10-19] MEDS: INSULIN ASPART 100 UNITS/ML SQ SCH ×3 (07:30→17:33)
[2016-10-19] MEDS: OMEPRAZOLE 20 MG CAPSULE PO SCH ×2 (07:37→09:55)
[2016-10-19] MEDS: FERROUS SULFATE 325 MG EC TABLET PO SCH ×3 (07:37→17:31)
[2016-10-19] MEDS: CHLORTHALIDONE 25 MG TABLET PO SCH ×2 (07:37→09:55)
[2016-10-19] MEDS: LISINOPRIL 5 MG TABLET PO SCH (07:37)
[2016-10-19] MEDS: SitaGLIPtin PHOSPHATE 50 MG TABLET PO SCH ×2 (07:37→09:55)
[2016-10-19] MEDS: DOCUSATE SODIUM 100 MG CAPSULE PO SCH (07:37)
[2016-10-19] MEDS: ATENOLOL 25 MG TABLET PO SCH ×2 (07:37→09:55)
[2016-10-19] MEDS: ASPIRIN 81 MG CHEWABLE TABLET PO SCH ×2 (07:37→09:55)
[2016-10-19] MEDS: CHOLECALCIFEROL (VIT D3) 2,000 UNITS TABLET PO SCH ×2 (07:37→09:55)
[2016-10-19] MEDS: GABAPENTIN 300 MG CAPSULE PO SCH ×2 (07:37→16:35)
[2016-10-19] MEDS: INSULIN DETEMIR 100 UNITS/ML SQ SCH (07:38)
[2016-10-19] MEDS ORDERED: SODIUM CHLORIDE 0.9% 500 ML IV ONE (07:53)
[2016-10-19] MEDS ORDERED: MIDAZOLAM HCL 2 MG/2 ML VIAL IVP ONE ×2 (07:55→07:59)
[2016-10-19] MEDS ORDERED: LIDOCAINE 1% 30 ML/SOD BICARB 8.4% 4 ML SQ ONE (07:55)
[2016-10-19] MEDS ORDERED: FentaNYL CITRATE-PF 100 MCG/2 ML VIAL IVP ONE ×2 (07:55→07:59)
[2016-10-19] MEDS ORDERED: HEPARIN SODIUM 1000 UNITS/NS 1,000 ML IARTER ONE (08:01)
[2016-10-19] MEDS ORDERED: IOHEXOL 300 MG/ML 150 ML VIAL IARTER ONE (08:07)
[2016-10-19] MEDS ORDERED: NITROGLYCERIN/D5W 50 MG/250 ML IV BOTTLE ICOR ONE (08:08)
[2016-10-19] MEDS ORDERED: MAGNESIUM SULFATE 2 GM in DEXTROSE 5%-WATER 50 ML IV ONE (09:15)
[2016-10-19] MEDS ORDERED: SODIUM CHLORIDE 0.9% 500 ML IV SCH (09:30)
[2016-10-19] MEDS ORDERED: SODIUM CHLORIDE 0.9% 1,000 ML IV ONE (09:53)
[2016-10-19] MEDS ORDERED: 0.9% SODIUM CHLORIDE 10 ML SYRINGE IVP PRN (12:30)
[2016-10-19 12:42] LABS: GLUCOSE COMMENT 1 Received Meds; GLUCOSE,POINT OF CARE 203 MG/DL (70-110)
[2016-10-19] MEDS: HYDROCODONE/ACETAMINOPHEN 5-325 MG TABLET PO PRN (16:36)
[2016-10-19 21:36] LABS: GLUCOSE COMMENT 1 Received Meds; GLUCOSE,POINT OF CARE 142 MG/DL (70-110)
[2016-11-12 16:42] LABS: GLUCOSE,POINT OF CARE 147 MG/DL (70-110)
[2016-11-12 16:42] LABS: GLUCOSE COMMENT 1 Received Meds; GLUCOSE,POINT OF CARE 182 MG/DL (70-110)
[2016-11-12 18:17] LABS: GLUCOSE,POINT OF CARE 132 MG/DL (70-110)
== END 2016-10-19 19:26 | disposition short-term general hospital (02) | DRG 286 ==
LOC: EMS 17:25 → 5N 20:30
PROVIDERS: ADMIT Family Medicine; ATTEND Family Medicine
PROC: 4A023N7 Measurement of Cardiac Sampling and Pressure, Left Heart, Percutaneous Approach (ICD-10-PCS; principal; 2016-10-19)
PROC: B3001ZZ Plain Radiography of Thoracic Aorta using Low Osmolar Contrast (ICD-10-PCS; 2016-10-19)
PROC: B2011ZZ Plain Radiography of Multiple Coronary Arteries using Low Osmolar Contrast (ICD-10-PCS; 2016-10-19)
DX: I25.10 Atherosclerotic heart disease of native coronary artery without angina pectoris (principal); N17.0 Acute kidney failure with tubular necrosis; E87.0 Hyperosmolality and hypernatremia; E11.9 Type 2 diabetes mellitus without complications; E78.5 Hyperlipidemia, unspecified; Z79.4 Long term (current) use of insulin; M19.90 Unspecified osteoarthritis, unspecified site; E11.22 Type 2 diabetes mellitus with diabetic chronic kidney disease; K21.9 Gastro-esophageal reflux disease without esophagitis; I49.9 Cardiac arrhythmia, unspecified; E11.65 Type 2 diabetes mellitus with hyperglycemia; G20 Parkinson's disease; E78.00 Pure hypercholesterolemia, unspecified; N18.9 Chronic kidney disease, unspecified; I12.9 Hypertensive chronic kidney disease with stage 1 through stage 4 chronic kidney disease, or unspecified chronic kidney disease; Z86.79 Personal history of other diseases of the circulatory system; Z95.1 Presence of aortocoronary bypass graft; I25.2 Old myocardial infarction; Z79.899 Other long term (current) drug therapy
CPT/HCPCS: 51702; 82570; 82962; 83036; 83605; 83735; 83935; 84300; 87081; 93005; 96360; 96361; 99285; J1644; J1815; J2250; J3010; J3475; J3480; J3490; J7030; J7060; Q9967

== ENCOUNTER → 2017-04-19 | Outpatient (CLI) | payer MEDICARE, OTHER ==
[~2017-04-19] MED LIST changes: -ACAR50TA11 PO; -AMIT25TA9 PO; +CYAN50008 PO; +FURO40 PO; -FURO40I IM; +GABA-531 PO; -GLIP10 PO; +HYDR-309 PO
== END | disposition home or self-care (01) ==
LOC: RADPV 14:04
PROVIDERS: ATTEND Internal Medicine Cardiovascular Disease
DX: I34.0 Nonrheumatic mitral (valve) insufficiency (principal)
CPT/HCPCS: 93306

== ENCOUNTER → 2018-02-21 | Outpatient (CLI) | payer MEDICARE, OTHER ==
[~2018-02-21] VITALS: Ht 152.4 cm; Wt 73.0 kg
[~2018-02-21] MED LIST changes: -ATEN25 PO; +ATEN25TA PO
[2018-02-21 10:57] VITALS: BP 90/52
== END | disposition home or self-care (01) ==
LOC: SRCNTR 10:32
PROVIDERS: ATTEND Internal Medicine Clinical Cardiac Electrophysiology
DX: Z45.018 Encounter for adjustment and management of other part of cardiac pacemaker (principal); I10 Essential (primary) hypertension; E78.00 Pure hypercholesterolemia, unspecified; I25.10 Atherosclerotic heart disease of native coronary artery without angina pectoris; K21.9 Gastro-esophageal reflux disease without esophagitis; E11.9 Type 2 diabetes mellitus without complications
CPT/HCPCS: G0463